=== PATIENT | male | born 1995 | race Caucasian/White ===

== ENCOUNTER 2017-03-13 15:48 | Emergency (ER) | payer SELFPAY ==
[~2017-03-13] VITALS: Ht 177.8 cm; Wt 73.5 kg
[~2017-03-13 15:48] MED LIST: ONDA4TAB7 SL
[2017-03-13 15:54] VITALS: TEMP 36.9; Ht 177.8 cm; Wt 73.5 kg
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
[2017-03-13 17:49] VITALS: BP 114/69; PULSE 86; O2SAT 98
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
== END 2017-03-13 17:50 | disposition home or self-care (01) ==
LOC: C.EDB 15:50 → C.EDD 17:50
DX: T14.8 Other injury of unspecified body region (principal); V29.9XXA Motorcycle rider (driver) (passenger) injured in unspecified traffic accident, initial encounter; J45.909 Unspecified asthma, uncomplicated; Z83.3 Family history of diabetes mellitus; Z82.49 Family history of ischemic heart disease and other diseases of the circulatory system; F17.200 Nicotine dependence, unspecified, uncomplicated